=== PATIENT | male | born 1985 ===

== ENCOUNTER 2018-02-20 14:21 | Emergency (ER) | payer OTHER ==
[2018-02-20 14:35] VITALS: O2SAT 100
--- NOTE | 2018-02-20 14:48 | C.PDOC ---
History Of Present Illness 32 year old male patient presents to the ER with c/o sharp pain on LUQ that started x3 days ago. Patient reports it is getting wore and is radiating to his groin. Patient denies fever, chills, nausea, vomiting, diarrhea, hematuria, rectal bleeding, dysuria and coughing. Patient notes his bowel movements are normal. Time Seen by Provider: 02/20/18 14:43 Chief Complaint (Nursing): Abdominal Pain History Per: Patient History/Exam Limitations: no limitations Onset/Duration Of Symptoms: Days (x3) Current Symptoms Are (Timing): Still Present Location Of Pain/Discomfort: LUQ Quality Of Discomfort: Sharp Past Medical History Reviewed: Historical Data, Nursing Documentation, Vital Signs Vital Signs: Last Vital Signs Temp 98.0 F 02/20/18 14:31 Pulse 78 02/20/18 14:31 Resp 17 02/20/18 14:31 BP 125/81 02/20/18 14:31 Pulse Ox 100 02/20/18 16:46 Family History: States: No Known Family Hx - Social History Hx Alcohol Use: No Hx Substance Use: No - Immunization History Hx Influenza Vaccination: No Hx Pneumococcal Vaccination: No Review Of Systems Except As Marked, All Systems Reviewed And Found Negative. Constitutional: Positive for: Other (sleepiness). Negative for: Fever, Chills Respiratory: Negative for: Cough Gastrointestinal: Positive for: Abdominal Pain (LUQ sharp abdominal pain radiates to groin ). Negative for: Nausea, Vomiting, Diarrhea Genitourinary: Negative for: Dysuria, Hematuria, Other (rectal bleeding) Physical Exam - Physical Exam Appears: Well, Non-toxic, No Acute Distress Skin: Normal Color, Warm, Dry Head: Normacephalic Eye(s): bilateral: Normal Inspection Oral Mucosa: Moist Chest: Symmetrical, No Deformity Cardiovascular: Rhythm Regular Respiratory: Normal Breath Sounds, No Rales, No Rhonchi, No Wheezing Gastrointestinal/Abdominal: Soft, Tenderness (suprapubic tenderness) Back: CVA Tenderness (mild ), Other (mid-axillary line at 12th rib tenderness) Extremity: Normal ROM (x4) Neurological/Psych: Oriented x3, Normal Speech ED Course And Treatment - Laboratory Results Result Diagrams: 02/20/18 15:11 02/20/18 15:11 O2 Sat by Pulse Oximetry: 100 (RA) Pulse Ox Interpretation: Normal - CT Scan/US CT abdomen and pelvis Other Rad Studies (CT/US): Read By Radiologist, Radiology Report Reviewed CT/US Interpretation: Accession No. : [id number]. Patient Name / ID : DONTAE CHOU / [id number]. Exam Date : 02/20/2018 15:30:34 ( Approved ). Study Comment : Sex / Age : M / 32Y. Creator : Jaydon Del Rio MD. Dictator : Project Asst : Utility Technician : Jaydon Del Rio MD. Approver2 : Report Date : 02/20/2018 16:25:00. My Comment : . Date of service: 2017. PROCEDURE: CT Abdomen and Pelvis with Oral contrast. HISTORY: Abdominal pain. COMPARISON: None. TECHNIQUE: Contiguous axial images of the abdomen and pelvis without oral or intravenous. contrast. Coronal and Sagittal reformats generated. Radiation dose: Total exam DLP = 856.18 .Gy-cm. This CT exam was performed using one or more of the following dose reduction techniques : Automated exposure control, adjustment of the mA and/or kV according to patient size, and/or use of iterative reconstruction technique. FINDINGS: LOWER THORAX: Unremarkable. LIVER: Unremarkable. No gross lesion or ductal dilatation. GALLBLADDER AND BILE DUCTS: Unremarkable. PANCREAS: Unremarkable. No mass. No ductal dilatation. SPLEEN: Unremarkable. No splenomegaly. ADRENALS: Unremarkable. KIDNEYS AND URETERS: Unremarkable. No stone or hydronephrosis. BLADDER: Grossly unremarkable. REPRODUCTIVE: Unremarkable. APPENDIX: Unremarkable. BOWEL: The localized area of a infiltration seen adjacent to of the lower descending colon on. Findings may represent epiploic appendagitis or other nonspecific panniculitis. . No evidence of colonic wall thickening or diverticular disease. PERITONEUM: Unremarkable. No fluid collection. No free air. Small fat containing umbilical and bilateral inguinal hernias. LYMPH NODES: There are multiple small to medium-sized scattered mesenteric lymph nodes ; rule out mesenteric adenitis. VASCULATURE: Unremarkable. No aortic aneurysm. BONES: No fracture or destructive lesion. OTHER FINDINGS: None. IMPRESSION: There is a localized area of infiltration- questionable inflammation within the mesentery adjacent to a short segment of the distal descending colon on. Findings likely represent either epiploica appendagitis or panniculitis. . No evidence of diverticulitis colonic wall thickening. Medical Decision Making Medical Decision Making: Impression: LUQ pain with CVA tenderness and mid axillary line at 12th rib tenderness. r/o renal colic. Plans: -- CT head & pelvis -- blood work -- IV fluids -- toradol -- UA Reassess: Patient is resting comfortably. Tolerating medication. Patient claims he feels better. Patient is instructed to f/u with PMD in 1-2 days. Disposition Counseled Patient/Family Regarding: Studies Performed, Need For Followup, Rx Given - Disposition Referrals: [facility] [Outside] Disposition: HOME/ ROUTINE Disposition Time: 16:33 Condition: STABLE Prescriptions: Ibuprofen [Motrin] 600 mg PO TID #15 tab Instructions: Acute Abdomen (Belly Pain), Adult (DC) Forms: [employer] (Azeri) - POA Present On Arrival: None - Clinical Impression Clinical Impression: Abdominal pain - Scribe Statement The provider has reviewed the documentation as recorded by the Scriberika Tsai Do Provider Attestation: All medical record entries made by the Scribe were at my direction and personally dictated by me. I have reviewed the chart and agree that the record accurately reflects my personal performance of the history, physical exam, medical decision making, and the department course for this patient. I have also personally directed, reviewed, and agree with the discharge instructions and disposition.
[2018-02-20] MEDS ORDERED: Sodium Chloride 0.9% 1,000 ML IV ONE (15:02)
[2018-02-20] MEDS ORDERED: Sodium Chloride 0.9% 1,000 ML ONE (15:13)
[2018-02-20 15:18] LABS: SQUAMOUS EPITHIAL < 1 /hpf (0-5); URINE BILIRUBIN NEGATIVE (NEGATIVE); URINE BLOOD 1+ (NEGATIVE); URINE CLARITY Clear (Clear); URINE COLOR Yellow (YELLOW); URINE GLUCOSE (UA) NORMAL (Normal); URINE LEUKOCYTE ESTERASE NEG Leu/uL (Negative); URINE PROTEIN NEGATIVE (NEGATIVE); URINE UROBILINOGEN NORMAL mg/dL (0.2-1.0)
[2018-02-20 15:19] LABS: BASO % 0.4 % (0.0-2.0); EOS # 0.1 K/uL (0.0-0.7); HEMOGLOBIN 14.3 g/dL (12.0-18.0); LYMPH # 3.1 K/uL (1.0-4.3); LYMPH % 42.6 % (20.0-40.0); MEAN CELL VOLUME 92.6 fL (80.0-94.0); MEAN CORPUSCULAR HEMOGLOBIN 31.7 pg (27.0-31.0); MEAN CORPUSCULAR HGB CONC 34.3 g/dL (33.0-37.0); MEAN PLATELET VOLUME 9.5 fL (7.2-11.7); MONO # 0.5 K/uL (0.0-0.8); MONO % 6.3 % (0.0-10.0); NEUT # 3.6 K/uL (1.8-7.0); NEUT % 48.7 % (50.0-75.0); RBC 4.51 Mil/uL (4.40-5.90); RED CELL DISTRIBUTION WIDTH 14.5 % (11.5-14.5); WHITE BLOOD COUNT 7.3 K/uL (4.8-10.8)
[2018-02-20 15:27] LABS: ALB/GLOB RATIO 1.6 (1.0-2.1); ALBUMIN 4.7 g/dL (3.5-5.0); ALT/SGPT 45 U/L (21-72); AST/SGOT 32 U/L (17-59); BLOOD UREA NITROGEN 12 mg/dL (9-20); CALCIUM 9.4 mg/dl (8.6-10.4); GFR NON-AFRICAN AMERICAN > 60
--- NOTE | 2018-02-20 16:26 | CT ---
Date of service: 02/20/2018 PROCEDURE: CT Abdomen and Pelvis with Oral contrast. HISTORY: Abdominal pain COMPARISON: None. TECHNIQUE: Contiguous axial images of the abdomen and pelvis without oral or intravenous. contrast. Coronal and Sagittal reformats generated. Radiation dose: Total exam DLP = 856.18 .Gy-cm. This CT exam was performed using one or more of the following dose reduction techniques: Automated exposure control, adjustment of the mA and/or kV according to patient size, and/or use of iterative reconstruction technique. FINDINGS: LOWER THORAX: Unremarkable. LIVER: Unremarkable. No gross lesion or ductal dilatation. GALLBLADDER AND BILE DUCTS: Unremarkable. PANCREAS: Unremarkable. No mass. No ductal dilatation. SPLEEN: Unremarkable. No splenomegaly. ADRENALS: Unremarkable. KIDNEYS AND URETERS: Unremarkable. No stone or hydronephrosis. BLADDER: Grossly unremarkable. REPRODUCTIVE: Unremarkable. APPENDIX: Unremarkable. BOWEL: The localized area of a infiltration seen adjacent to of the lower descending colon on. Findings may represent epiploic appendagitis or other nonspecific panniculitis. . No evidence of colonic wall thickening or diverticular disease. PERITONEUM: Unremarkable. No fluid collection. No free air. Small fat containing umbilical and bilateral inguinal hernias. LYMPH NODES: There are multiple small to medium-sized scattered mesenteric lymph nodes ; rule out mesenteric adenitis. VASCULATURE: Unremarkable. No aortic aneurysm. BONES: No fracture or destructive lesion. OTHER FINDINGS: None. IMPRESSION: There is a localized area of infiltration- questionable inflammation within the mesentery adjacent to a short segment of the distal descending colon on. Findings likely represent either epiploica appendagitis or panniculitis. . No evidence of diverticulitis colonic wall thickening.
[2018-02-20 16:56] VITALS: BP 126/80; PULSE 76; RESP 16; TEMP 98.2
== END 2018-02-20 16:54 | disposition home or self-care (01) ==
LOC: C.ER 14:21
DX: R10.12 Left upper quadrant pain (principal)
CPT/HCPCS: 74176; 80053; 81001; 85025; 96374; 99284; J1885; J7030